=== PATIENT | male | born 1960 | race Caucasian/White ===

== ENCOUNTER → 2017-12-23 | Outpatient (CLI) | payer OTHER ==
[~2017-12-23] VITALS: Ht 193 cm; Wt 129.3 kg
[~2017-12-23] MED LIST: BENICAR20 MG PO; VITAMIN D1000 UNIT PO
--- NOTE | ~2017-12-23 | CATHLAB ---
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 The Right Groin^ was infiltrated with 1% Lidocaine subcutaneous anesthesia. A PINNACLE 4FR Sheath #[id number] sheath was inserted into the RFA^. Coronary angiography was performed using coronary diagnostic catheters. The right coronary system was accessed and visualized with a JR 4 catheter. The left coronary system was accessed and visualized with a JL 4 catheter. The left ventricle was accessed and visualized with a Pigtail catheter. Left ventricular/Aortic Valve gradient assessed via catheter pullback. Left ventriculogram was performed in GARRIDO projection. Hemostasis was obtained with manual pressure following sheath removal without any complications. The patient tolerated the procedure well and there were no complications associated with the procedure. There was no hematoma. Intraoperative Conscious Sedation Sedation start time: 13:59 Case end Time: 14:23 Versed 2 mg [facility] [place] [address] INVASIVE PROCEDURE REPORT Name: CAROLINE JACOBS Room #: REG Tra#: [id number] Admission: 12/23/17 Attend Phys: Arjun Fish Discharge: Date of : 64 Date of Service: 12/27/17 1440 Report #: [id number] Fluoro Time: 2.09 minutes Dose: DAP 4366.10 cGycm2 608 mGy Contrast Type and Amount: Omnipaque 60 ml Coronary Angiography The patient's coronary anatomy is right dominant. Diagnostic Cath Left Main Normal origin and caliber bifurcates left anterior descending left circumflex free of high-grade disease LAD Moderate caliber type III vessel which courses in the anterior interventricular sulcus. At the origin of the first septal crew chief there appears to be a mild eccentric irregularity of under 20% and it is not flow-limiting without evidence of thrombus. The LAD then continues in the sulcus giving rise to septal and diagonal branches free of high-grade disease free of high-grade disease Diagonal 1 Small to moderate caliber vessel without significant obstructive lesions Circumflex Moderate caliber vessel that courses in the AV groove posteriorly giving rise to marginal branches no significant obstructive lesions are noted OM1 Small to moderate caliber vessel with luminal irregularities of under 30% OM2 Small to moderate caliber vessel which in its proximal course has irregularities of under 30% which are nonflow limiting Right Coronary Large-caliber vessel low normal origin which courses posteriorly giving rise to a small right be marginal branch it then continues on giving rise to posterior wall circulation and posterior descending artery all of which are free of high-grade disease R PDA Small-caliber vessel without significant obstructive lesion noted as a courses in the posterior interventricular sulcus towards the apex Ramus Small to moderate caliber vessel without significant obstructive lesions noted Left Ventriculography The left ventricular ejection fraction is estimated to be 60%. Left ventricular wall motion abnormalities are not present. Hemodynamics The aortic pressure is 128/89 mmHg with a mean of 102 mmHg. The left ventricular pressure is 132/9 mmHg with a mean of mmHg. The left ventricular end diastolic pressure is 16 mmHg. Conclusion [facility] [address] [address] INVASIVE PROCEDURE REPORT Name: CAROLINE JACOBS Room #: REG CL Tra#: [id number] Admission: 12/23/17 Attend Phys: Arjun Fish Discharge: Date of : 64 Date of Service: 12/27/17 1440 Report #: [id number] 1. Essentially normal coronary artery with mild plaquing noted and no obstructive lesions 2. Normal hemodynamics Recommendations Cardiac Risk Reduction Program <ELECTRONICALLY SIGNED> By: Arjun Stephens MD 12/27/17 1440 1440 1440 Arjun Stephens MD /INF
[2017-12-23 11:50] VITALS: BP 146/83
== END ==
LOC: CATH 11:26
DX: I25.10 Atherosclerotic heart disease of native coronary artery without angina pectoris (principal); I10 Essential (primary) hypertension; E78.5 Hyperlipidemia, unspecified; G47.30 Sleep apnea, unspecified; F17.200 Nicotine dependence, unspecified, uncomplicated